=== PATIENT | male | born 1980 | race Caucasian/White ===

== ENCOUNTER 2018-03-09 13:33 | Emergency (ER) | payer BC ==
[2018-03-09 13:50] VITALS: BP 130/74
--- NOTE | 2018-03-09 14:28 | UC ---
Lower Extremity/Ankle HPI - HPI Summary HPI Summary: pt has a hx of dryness with peeling and occasional vesicles to his left foot x 10 years. he notes that on occasion, it will get infected. the outside of his heel has become red and sore with mild swelling over the past 1-2 days. no fever or joint pains. states [facility] and the whole foot got better for 6 months. - History of Current Complaint Chief Complaint: UCSkin Stated Complaint: LFT FOOT PAIN Time Seen by Provider: 03/09/18 14:18 Hx Obtained From: Patient Onset/Duration: Gradual Onset Pain Intensity: 7 Aggravating Factor(s): Standing - side of heel gets sore Alleviating Factor(s): Nothing Able to Bear Weight: Yes - Allergies/Home Medications Allergies/Adverse Reactions: Allergies Allergy/AdvReac Type Severity Reaction Status Date / Time No Known Allergies Allergy Verified 02/24/17 15:13 Home Medications: Home Medications Ibuprofen TAB* [Motrin TAB* 800 MG] 800 mg PO Q6H PRN 03/09/18 [History Confirmed 03/09/18] Oxymorphone HCl [Opana] 5 mg PO SEE INSTRUCTIONS 03/09/18 [History Confirmed ] PMH/Surg Hx/FS Hx/Imm Hx - Additional Past Medical History Additional PMH: CHRONIC BACK AND SHOULDER PAIN, CHRONIC RASH LEFT FOOT - Surgical History Surgical History: Yes Surgery Procedure, Year, and Place: left shoulder x 2 and hernia repair - Family History Known Family History: Positive: Other - healthy - Social History Occupation: Employed Full-time Alcohol Use: None Substance Use Type: None Smoking Status (MU): Heavy Every Day Tobacco Smoker Type: Cigarettes Amount Used/How Often: 1/2 ppd Have You Smoked in the Last Year: Yes Household Exposure Type: Cigarettes - Immunization History Most Recent Tetanus Shot: about 3 years Vaccination Up to Date: Yes Review of Systems Constitutional: Negative Skin: Rash Eyes: Negative ENT: Negative Respiratory: Negative Cardiovascular: Negative Gastrointestinal: Negative Genitourinary: Negative Motor: Negative Neurovascular: Negative Musculoskeletal: Negative Neurological: Negative Psychological: Negative Is Patient Immunocompromised?: No All Other Systems Reviewed And Are Negative: Yes Physical Exam Triage Information Reviewed: Yes Appearance: Well-Appearing Vital Signs: Initial Vital Signs Temp 98.5 F 03/09/18 13:41 Pulse 62 03/09/18 13:41 Resp 18 03/09/18 13:41 BP 130/74 03/09/18 13:41 Pulse Ox 97 03/09/18 13:41 Vital Signs Reviewed: Yes Eyes: Positive: Conjunctiva Clear ENT: Positive: Normal ENT inspection Neck: Positive: Supple, Nontender, No Lymphadenopathy Respiratory: Positive: Lungs clear, Normal breath sounds Cardiovascular: Positive: RRR, No Murmur Abdomen Description: Positive: Nontender, No Organomegaly, Soft Bowel Sounds: Positive: Present Musculoskeletal: Positive: ROM Intact Neurological: Positive: Alert Psychological: Positive: Age Appropriate Behavior Skin Exam: Normal Skin: Positive: rashes - L foot: maceration between toes. Peeling to plantar surface with deep cracks in skin c/w chronic rash. lateral heel with slight swelling and mild erythema. that area is tender but not fluctuant. R foot: no rash. Lower Extremity Course/Dx - Course Course Of Treatment: exam c/w skin infection along with the acute bacterial infection. area between toes looks c/w fungal infection. pt notes creams irritate the skin thus will use otc athleltes foot spray. the hx of chronic rash raises concern for dyhidrotic eczema in my opinion. he has seen pcp's and podiatry. I think he may benefit from dermatology thus i will give him a referal. - Differential Dx/Diagnosis Provider Diagnoses: Cellulitis L foot, Tinea pedis L foot. Discharge - Sign-Out/Discharge Documenting (check all that apply): Discharge/Admit/Transfer - Discharge Plan Condition: Stable Disposition: HOME Prescriptions: Clindamycin Cap(NF) [Clindamycin Cap 300 mg Cap(NF)] 300 mg PO TID #21 cap Patient Education Materials: Athlete's Foot (ED), Cellulitis (DC) Referrals: Patrick Sutton MD [Primary Care Provider] - 2 Days Hussain Moss MD [Medical Doctor] - As Soon As Possible Additional Instructions: START AN OVER THE COUNTER ATHLETES FOOT SPRAY BETWEEN TOES LEFT FOOT PER LABEL. - Billing Disposition and Condition Condition: STABLE Disposition: HOME
== END 2018-03-09 14:43 | disposition home or self-care (01) ==
LOC: UCCORT 13:33
DX: L03.116 Cellulitis of left lower limb (principal); B35.3 Tinea pedis; G89.29 Other chronic pain; M54.9 Dorsalgia, unspecified; M25.519 Pain in unspecified shoulder; F17.210 Nicotine dependence, cigarettes, uncomplicated
CPT/HCPCS: 99212; G0463

== ENCOUNTER 2019-01-22 18:33 | Emergency (ER) | payer SELFPAY ==
[2019-01-22 20:19] VITALS: BP 122/68
--- NOTE | 2019-01-22 20:34 | UC ---
Skin Complaint HPI - HPI Summary HPI Summary: C/O worsening in chronic rash in the left foot in the last 5 days. Has had rash in the last 10 years. Increasing pain and redness but no fevers or chills. - History of Current Complaint Chief Complaint: UCRas Time Seen by Provider: 01/22/19 19:31 Stated Complaint: POSSIBLE INFECTION LEFT FOOT Hx Obtained From: Patient Onset/Duration: Gradual Onset, Lasting Days - 5, Worse Since - today Timing: Constant Onset Severity: Mild Current Severity: Moderate Pain Intensity: 5 Location: Foot (Left) Character: Swelling, Pruritus, Redness, Painful Aggravating Factor(s): Touch Alleviating Factor(s): Nothing Associated Signs & Symptoms: Positive: Rash, Tenderness. Negative: Fever, Chills - Allergy/Home Medications Allergies/Adverse Reactions: Allergies Allergy/AdvReac Type Severity Reaction Status Date / Time No Known Allergies Allergy Verified 01/22/19 20:20 PMH/Surg Hx/FS Hx/Imm Hx Cardiovascular History: Hypertension - Surgical History Surgical History: Yes Surgery Procedure, Year, and Place: left shoulder x 2 and right inguinal hernia repair - Family History Known Family History: Positive: Diabetes, Other - healthy - Social History Occupation: Unemployed Lives: With Family Alcohol Use: None Substance Use Type: None Smoking Status (MU): Heavy Every Day Tobacco Smoker Type: Cigarettes Amount Used/How Often: 1/2 ppd Have You Smoked in the Last Year: Yes Household Exposure Type: Cigarettes - Immunization History Most Recent Tetanus Shot: about 3 years Vaccination Up to Date: Yes Review of Systems All Other Systems Reviewed And Are Negative: Yes Skin: Positive: Rash - on the left foot. Is Patient Immunocompromised?: No Physical Exam Triage Information Reviewed: Yes Appearance: Well-Appearing, Well-Nourished, Pain Distress - with ambulation Vital Signs: Initial Vital Signs Temp 98.5 F 01/22/19 20:08 Pulse 61 01/22/19 20:08 Resp 18 01/22/19 20:08 BP 122/68 01/22/19 20:08 Pulse Ox 96 01/22/19 20:08 Vital Signs Reviewed: Yes Eyes: Positive: Conjunctiva Clear Neck exam: Normal Respiratory Exam: Normal Cardiovascular Exam: Normal Musculoskeletal Exam: Normal Neurological Exam: Normal Psychological Exam: Normal Skin: Positive: Rashes - scaling rash around the heel/ sole of the left foot up into the toes. Erythema extending from the 4th 5th web space proximally with swelling. Images Feet (Multiple View): 1 - Scaling rash 2 - scaling rash 3 - erythema with tenderness and swelling 4 - maceration between the toes. 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, Cellulitis of left foot Discharge - Sign-Out/Discharge Documenting (check all that apply): Patient Departure All imaging exams completed and their final reports reviewed: No Studies - Discharge Plan Condition: Stable Disposition: HOME Prescriptions: Betamethasone Dipropionate [Augmented Betamethasone D] 1 applic TOPICAL BID #50 gm Cephalexin CAP* [Keflex 500 CAP*] 500 mg PO QID #40 cap Patient Education Materials: Cellulitis (ED), Cephalexin (By mouth), Eczema (ED ), Dyshidrotic Eczema (ED), Betamethasone Dipropionate, Augmented (On the skin) Referrals: Patrick Sutton MD [Primary Care Provider] - 1 Week (recheck on the foot and eczema) - Billing Disposition and Condition Condition: STABLE Disposition: Home
[2019-01-22] MEDS ORDERED: Cephalexin CAP* 500 MG PO ONE (20:36)
== END 2019-01-22 20:53 | disposition home or self-care (01) ==
LOC: UCCORT 18:33
DX: L30.8 Other specified dermatitis (principal); L03.116 Cellulitis of left lower limb; F17.210 Nicotine dependence, cigarettes, uncomplicated; I10 Essential (primary) hypertension
CPT/HCPCS: 99212; A9270-GY; G0463